=== PATIENT | female | born 1935 | race Caucasian/White ===

== ENCOUNTER 2018-08-22 19:19 | Emergency (ER) | payer OTHER, BC ==
--- NOTE | 2018-08-22 19:22 | PDOC ---
History of Present Illness - General History Source: Patient, Family, Old Records Exam Limitations: No Limitations - History of Present Illness Initial Comments: 08/22/18 20:03 The patient is a 83 year old female presenting with her granddaughters, with a significant past medical history of HTN, who presents to the ED complaining of hitting her head when she fell earlier today. She reports that she heard some noise outside of her home and went out to check. She notes that she fell and hit her head and right knee on concrete. She does not illicit pain on presentation for her head injury but notes a bruise on her left forehead. She denies any factors leading up to her fall. She denies any knee pain but also notes a bruise on her knee. She reports that she was feeling fine after the fall and did not want to come to the ED. She came to the ED on the behest of her family. She denies any kind of pain. The patient denies chest pain, shortness of breath, neck pain, back pain, headache and dizziness. Denies fever, chills, nausea, vomiting, diarrhea or constipation. Denies dysuria, frequency, urgency and hematuria. Allergies: None Past surgical history: Right knee replacement Social History: No alcohol, tobacco or drug use reported <Tom Pyle - Last Filed: 08/22/18 23:20> <Beckie Lynch - Last Filed: 08/23/18 00:57> - General Chief Complaint: Injury Stated Complaint: INJURY,FALL HIT HEAD Time Seen by Provider: 08/22/18 19:21 Past History <Tom Pyle - Last Filed: 08/22/18 23:20> - Past Medical History HTN: Yes - Immunization History Immunization Up to Date: Yes - Suicide/Smoking/Psychosocial Hx Smoking History: Unknown if ever smoked Have you smoked in the past 12 months: No If you are a former smoker, when did you quit?: Over 40 years ago Hx Alcohol Use: No Drug/Substance Use Hx: No Substance Use Type: None Hx Substance Use Treatment: No <Beckie Lynch - Last Filed: 08/23/18 00:57> - Past Medical History Allergies/Adverse Reactions: Allergies Allergy/AdvReac Type Severity Reaction Status Date / Time No Known Drug Allergies Allergy Verified 08/22/18 19:21 Home Medications: Ambulatory Orders Cholecalciferol (Vitamin D3) [Vitamin D] 400 unit PO DAILY 04/26/15 Enalapril Maleate [Vasotec] 25 mg PO DAILY 04/26/15 Review of Systems - Review of Systems Able to Perform ROS?: Yes Comments:: 08/22/18 20:03 GENERAL/CONSTITUTIONAL: No fever or chills. No weakness. HEAD, EYES, EARS, NOSE AND THROAT: (+) Left forehead bruise. No change in vision. No ear pain or discharge. No sore throat. GASTROINTESTINAL: No nausea, vomiting, diarrhea or constipation. GENITOURINARY: No dysuria, frequency, or change in urination. CARDIOVASCULAR: No chest pain or shortness of breath. RESPIRATORY: No cough, wheezing, or hemoptysis. MUSCULOSKELETAL: No joint or muscle swelling or pain. No neck or back pain. SKIN: No rash EXTREMITIES: (+) Right knee bruise NEUROLOGIC: No headache, vertigo, loss of consciousness, or change in strength/ sensation. ENDOCRINE: No increased thirst. No abnormal weight change. HEMATOLOGIC/LYMPHATIC: No anemia, easy bleeding, or history of blood clots. ALLERGIC/IMMUNOLOGIC: No hives or skin allergy. <Tom Pyle - Last Filed: 08/22/18 23:20> *Physical Exam - Vital Signs Last Vital Signs Temp Pulse Resp BP Pulse Ox 97.9 F 79 20 135/80 96 08/22/18 19:20 08/22/18 19:20 08/22/18 19:20 08/22/18 19:20 08/22/18 19:20 - Physical Exam Comments: 08/22/18 20:03 Constitutional: Awake, alert, oriented. No acute distress. Head: (+) Mildly tender, mildly edematous, mildly ecchymosis 4 cm diameter contusion on the left side of her forehead. Normocephalic. Eyes: PERRL. EOMI. Conjunctivae are not pale. ENT: Mucous membranes are moist and intact. Posterior pharynx without exudates or erythema. Uvula midline. Neck: Supple. Full ROM. No lymphadenopathy. Cardiovascular: Regular rate. Regular rhythm. S1, S2 regular. Distal pulses are 2+ and symmetric. Pulmonary/Chest: No evidence of respiratory distress. Clear to auscultation bilaterally No wheezing, rales or rhonchi. Abdominal: Soft and non-distended. There is no tenderness. No rebound, guarding or rigidity. No organomegaly. No palpable masses. Good bowel sounds. Back: No CVA tenderness. Musculoskeletal: (+) Faint ecchymosis and non bleeding abrasion of the anterior right knee, with also some mild tenderness, no edema, no deformity. No cyanosis. No clubbing. Full range of motion in all extremities. No calf tenderness. Radial/pedal pulses are intact and 2+ bilaterally Skin: Skin is warm and dry. No petechiae. No purpura. Neurological: Alert and oriented to person, place, and time. Cranial nerves II -XII are grossly intact. Normal speech. Strength is grossly symmetric. No sensory deficits. Psychiatric: Good eye contact. Normal interaction, affect and behavior. <Tom Pyle - Last Filed: 08/22/18 23:20> Moderate Sedation - Procedure Monitoring Vital Signs: Procedure Monitoring Vital Signs Temperature 97.9 F 08/22/18 19:20 Pulse Rate 79 08/22/18 19:20 Respiratory Rate 20 08/22/18 19:20 Blood Pressure 135/80 08/22/18 19:20 O2 Sat by Pulse Oximetry (%) 96 08/22/18 19:20 <Tom Pyle - Last Filed: 08/22/18 23:20> Progress Note - Progress Note Progress Note: Documentation has been prepared under my direction and personally reviewed by me in its entirety. I attest that this documented accurately reflects all work, treatment, procedures and medical decision making performed by me. <Beckie Lynch - Last Filed: 08/23/18 00:57> Medical Decision Making - Medical Decision Making As noted above, this 83-year-old woman presents with a history of tripping and falling on an uneven surface outside of her home earlier today. Patient vehemently denies antecedent lightheadedness or other physical symptoms prior to falling. She states that sidewalk was uneven and she tripped. Patient struck her forehead and right knee but denies LOC. No significant symptoms occurred through the afternoon and early evening. She was convinced by her family to come to the emergency room for full evaluation. Exam as noted. Although patient is not taking any anticoagulation medications, because of her advanced age, noncontrast head CT will be performed to evaluate for acute intracranial pathology. Also, right knee x-ray will be performed. Noncontrast head CT performed and interpreted by Dr. Montana of radiology staff: No evidence of acute intracranial process present. There is evidence of chronic micro-vascular ischemic changes. There is no significant change from noncontrast head CT performed 4 and half years ago here. Right knee x-ray shows that patient had total knee replacement in this joint. There is no fracture or dislocation; furthermore, no evidence of loosening of the hardware in her knee. <Beckie Lynch - Last Filed: 08/23/18 00:57> *DC/Admit/Observation/Transfer - Attestations Scribe Attestion: 08/22/18 20:03 Documentation prepared by Tom Pyle, acting as certified medical asst for Beckie Lynch MD <Tom Pyle - Last Filed: 08/22/18 23:20> <Beckie Lynch - Last Filed: 08/23/18 00:57> Diagnosis at time of Disposition: Forehead contusion Qualifiers: Encounter type: initial encounter Qualified Code(s): S00.83XA - Contusion of other part of head, initial encounter Contusion, knee Qualifiers: Encounter type: initial encounter Laterality: right Qualified Code(s): S80.01XA - Contusion of right knee, initial encounter Closed head injury Qualifiers: Encounter type: initial encounter Qualified Code(s): S09.90XA - Unspecified injury of head, initial encounter - Discharge Dispostion Disposition: HOME Condition at time of disposition: Stable - Patient Instructions Printed Discharge Instructions: DI for Closed Head Injury Additional Instructions: cold compresses to forehead bruise for the next 2 days extra pillow tonight Tylenol as needed for pain for the next 2 days, then Motrin/Aleve/Tylenol as needed return to ER if you have headache/vomiting/lightheadedness Follow-up with your doctor within the next 5 days
[2018-08-22 19:28] VITALS: BP 135/80; PULSE 79; TEMP 97.9; BMI 21.2
== END 2018-08-22 20:37 | disposition home or self-care (01) ==
LOC: FER 19:19
DX: S09.90XA Unspecified injury of head, initial encounter (principal); S80.01XA Contusion of right knee, initial encounter; S00.83XA Contusion of other part of head, initial encounter; W01.0XXA Fall on same level from slipping, tripping and stumbling without subsequent striking against object, initial encounter; Y93.89 Activity, other specified; Y92.89 Other specified places as the place of occurrence of the external cause
CPT/HCPCS: 70450-TC; 73560-TC-RT-FY; 99282-25

== ENCOUNTER 2018-11-01 22:56 | Observation (INO) | payer OTHER, BC ==
[2018-11-01 23:01] VITALS: BMI 27.4
--- NOTE | 2018-11-01 23:48 | PDOC ---
Attending Attestation - Resident Resident Name: Jessica Batres - ED Attending Attestation I have performed the following: I have examined & evaluated the patient, The case was reviewed & discussed with the resident, I agree w/resident's findings & plan, Exceptions are as noted - HPI HPI: 11/02/18 00:27 The patient is an 83-year-old female with a past medical history significant for HTN presents to the emergency department via EMS s/p a syncopal episode. 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 The patient slumped forward with LOC, nearby nurses helped the patient to lay down on the floor. Following, the patient spontaneously regained consciousness. Immediately following, the patient had an episode of vomiting. Denies any symptoms prior to LOC, lightheadedness, headache, neck pain, neurological symptoms, chest pain, shortness of breath diarrhea, melena, bpr, fever/chills, cough, dysuria, or known sick contact. - Physicial Exam PE: 11/02/18 00:06 GENERAL: The patient is awake, alert, and fully oriented, Nontoxic - in no acute distress. HEAD: Normocephalic, atraumatic. EYES: extraocular movements intact, sclera anicteric, conjunctiva clear. ENT: Normal voice, mildly dry mucous membranes. NECK: Normal range of motion, supple LUNGS: Breath sounds equal, clear to auscultation bilaterally. No wheezes, no rhonchi, no rales. HEART: Regular rate and rhythm, normal S1 and S2 without murmur, rub or gallop. ABDOMEN: Soft, nontender, normoactive bowel sounds. No guarding, no rebound. . No CVA tenderness EXTREMITIES: Normal range of motion, no edema. No clubbing or cyanosis. No cords, erythema, or tenderness. NEUROLOGICAL: No facial assymetry, Normal speech, PSYCH: Normal mood, normal affect. SKIN: Warm, Dry, normal turgor, - Medical Decision Making 11/01/18 23:51 83y F hx of htn, presents sp witnessed syncopal event. 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 Woke up spontaneously when she laid flat, vomited and has been feeling fine since then. Deneis any chest pain, palpitations, sob, dizziness, prior n/v, abd pain, back pain, nekc de paz, fever/chills, cough, sob. BGM 102 in the field. ddx includes but not limited to anemia, metabolic dernagement, arrythmia, acs, vagal episode, dehydraiton perla lcklbas, pt placed on seals engraver gentle fluids ekg ua will reassess, likely obs if w/o neg to r/o arrythmia
[2018-11-01] MEDS ORDERED: SODIUM CHLORIDE 0.9% 500 ML INFUS.BAG IV ONE (23:55)
--- NOTE | 2018-11-02 00:02 | PDOC ---
History of Present Illness - General Chief Complaint: Syncope/Near Syncope Stated Complaint: SYNCOPE VOMITING Time Seen by Provider: 11/01/18 23:42 - History of Present Illness Initial Comments: Asim Golden is an 83yo woman with a PMH of HTN who presents after a witnessed episode of syncope and vomiting tonight. She presents with her daughter and granddaughter, who witnessed the event. Ms Golden was with her family playing Bingo at a [employer] event tonight. Her daughter states that she suddenly had a "blank look" on her face and then slumped forward in her chair. There were several nurses present at the event, and they helped lay her down flat on the ground. She regained consciousness after about a minute or less, and she had an episode of vomiting after waking up. Ms Golden denies any symptoms preceding the syncope including lightheadedness , nausea, chest pain, SOB, weakness or any neurological symptoms. After waking, she states that she has felt in her normal state of health and currently denies any symptoms. Past History - Past Medical History Allergies/Adverse Reactions: Allergies Allergy/AdvReac Type Severity Reaction Status Date / Time No Known Drug Allergies Allergy Verified 11/01/18 22:59 Home Medications: Ambulatory Orders Ramipril 2.5 mg PO DAILY 11/02/18 COPD: No HTN: Yes - Immunization History Immunization Up to Date: Yes - Suicide/Smoking/Psychosocial Hx Smoking History: Never smoked Have you smoked in the past 12 months: No If you are a former smoker, when did you quit?: Over 40 years ago Information on smoking cessation initiated: No Hx Alcohol Use: No Drug/Substance Use Hx: No Substance Use Type: None Hx Substance Use Treatment: No Review of Systems - Review of Systems Comments:: General: No fevers, no chills, no weight or appetite change, no malaise HEENT: No changes in vision, no changes in hearing, no congestion, no sore throat CV: No chest pain, no palpitations, no LE edema. h/o HTN Pulm: No SOB, no cough, no wheezing GI: No nausea or vomiting, no change in bowel habits, no melena : No frequency, no urgency, no dysuria Musc: No back pain, no joint swelling, no recent injury Skin: No rash, no lesions, no erythema Endo: No excessive thirst, no heat/cold intolerance Heme: No unusual bruising or bleeding, no swollen glands Neuro: +syncope. No numbness/tingling, no focal weakness Vasc: No claudication Psych: No recent change in mood, no SI or HI *Physical Exam - Vital Signs Last Vital Signs Temp Pulse Resp BP Pulse Ox 97.6 F 66 18 132/89 99 11/01/18 23:00 11/01/18 23:00 11/01/18 23:00 11/01/18 23:00 11/01/18 23:00 - Physical Exam Comments: General: Comfortable, no acute distress HEENT: PERRL, EOMI, MMM, voice normal, normal neck ROM, no LAD Cards: RRR, no murmur appreciated Pulm: Comfortable on room air, clear to auscultation bilaterally Abd: Soft, nontender, nondistended : No CVA tenderness Ext: Atraumatic. Trace BLE edema. ROM intact. Strength 5/5 and equal bilaterally Vasc: Extremities WWP. Skin: Normal color, no rashes or lesions Neuro: A&Ox3, CN grossly intact, normal speech, motor/sensory grossly intact and symmetric. No focal deficits noted. Psych: Mood appropriate to situation Moderate Sedation - Procedure Monitoring Vital Signs: Procedure Monitoring Vital Signs Temperature 97.6 F 11/01/18 23:00 Pulse Rate 66 11/01/18 23:00 Respiratory Rate 18 11/01/18 23:00 Blood Pressure 132/89 11/01/18 23:00 O2 Sat by Pulse Oximetry (%) 99 11/01/18 23:00 ED Treatment Course - LABORATORY CBC & Chemistry Diagram: 11/02/18 00:25 11/02/18 00:25 - RADIOLOGY Radiology Studies Ordered: Category Date Time Status CHEST PA & LAT [RAD] Stat Radiology 11/01/18 23:39 Ordered Medical Decision Making - Medical Decision Making 11/01/18 23:58 Asim Golden is an 83yo woman with a PMH of HTN who presents after a witnessed episode of syncope followed by vomiting while playing [employer]. She is currently asymptomatic. - Unclear cause at this point, pt denies any symptoms prior to or following the syncope event - No fall, no head injury or neurological symptoms indicating neuro workup. No need for imaging - May be arrhythmia, orthostatic, vagal. No SOB or chest pain suggesting ND, no palpitations, no h/o arrhythmia. Pt does report low fluid intake at baseline and appears slightly dry, but no significant dehydration nor orthostatic symptoms. - CBC, CMP, mag, phos, UA, CXR, EKG for evaluation - 500cc bolus NS for rehydration 11/02/18 01:14 - EKG completed. NSR w/ one PAC noted. HR 66, normal intervals, normal axis, no ST changes - Labs reviewed. Unremarkable, no concerning abnormalities - Discussed admission with Ms Golden and her daughter. Recommend obs with cardiac monitoring to rule out arrhythmia as a cause of syncope. She agrees to admission. Will contact hospitalist after CXR is completed. 11/02/18 02:32 - Hospitalist team contacted, will admit for syncope workup/evaluation - CXR completed. No significant change from previous. Discussed with Dr Drummond. Jessica Batres PGY1 *DC/Admit/Observation/Transfer Diagnosis at time of Disposition: Syncope Qualifiers: Syncope type: unspecified Qualified Code(s): R55 - Syncope and collapse - Discharge Dispostion Decision to Admit order: Yes - Referrals - Patient Instructions - Post Discharge Activity
[2018-11-02 00:45] LABS: BASO % 0.9 % (0-2.0); EOS % 2.2 % (0-4.5); HEMATOCRIT 40.1 % (32.4-45.2); HEMOGLOBIN 13.7 GM/dL (10.7-15.3); LYMPH % 13.1 % (8-40); MCH 30.9 pg (25.7-33.7); MCHC 34.3 g/dl (32.0-36.0); MEAN PLT VOLUME 7.4 fl (7.5-11.1); MONO % 9.8 % (3.8-10.2); PLATELET COUNT 242 K/MM3 (134-434); RBC 4.45 M/mm3 (3.60-5.2); RDW 14.2 % (11.6-15.6); WHITE BLOOD COUNT 9.8 K/mm3 (4.0-10.0)
[2018-11-02 01:05] LABS: ALBUMIN 3.4 g/dl (3.4-5.0); ALK PHOS 68 U/L (45-117); ANION GAP 5 MMOL/L (8-16); BILIRUBIN,TOTAL 0.5 mg/dL (0.2-1); BLOOD UREA NITROGEN 12 mg/dL (7-18); CALCIUM 8.7 mg/dL (8.5-10.1); CHLORIDE 103 mmol/L (98-107); CO2 32 mmol/L (21-32); CREATININE 0.7 mg/dL (0.55-1.3); GLUCOSE,RANDOM 120 mg/dL (74-106); MAGNESIUM 2.4 mg/dL (1.8-2.4); PHOSPHOROUS 3.1 mg/dL (2.5-4.9); POTASSIUM 4.4 mmol/L (3.5-5.1); SGOT/AST 16 U/L (15-37); SGPT/ALT 17 U/L (13-61); SODIUM 139 mmol/L (136-145); TOT PROT 6.7 g/dl (6.4-8.2)
--- NOTE | 2018-11-02 03:14 | HP ---
CHIEF COMPLAINT: syncope PCP: Dr. Sutton HISTORY OF PRESENT ILLNESS: Patient is an 83 yo F with a PMHx of HTN, who presented after a witnessed syncopal episode while playing BINGO at a [employer] event. Patient's daughter at bedside. She states her mom suddenly had a blank look on her face and fell forward on her chair. She had LOC for under a minute. Daughter also states she vomited right after she regained consciousness. Patient denies preceding symptoms prior to the syncopal episode. She also says she has not been drinking enough water lately. She said she had a similar episode in 2013 and was admitted. Patient also told the ER resident that she sometimes has very low blood pressure. She denies lightheadedness, nausea, chest pain, SOB, weakness or any neurological symptoms. ER course was notable for: (1) 1/2 L NS bolus in ER (2) Trop neg x 1 Recent Travel: denies PAST MEDICAL HISTORY: per HPI Family History: Allergies No Known Drug Allergies Allergy (Verified 11/01/18 22:59) HOME MEDICATIONS: Home Medications Medication Instructions Recorded Ramipril 2.5 mg PO DAILY 11/02/18 REVIEW OF SYSTEMS CONSTITUTIONAL: Absent: fever, chills, diaphoresis, generalized weakness, malaise, loss of appetite, weight change HEENT: Absent: rhinorrhea, nasal congestion, throat pain, throat swelling, difficulty swallowing, mouth swelling, ear pain, eye pain, visual changes CARDIOVASCULAR: syncope Absent: chest pain, palpitations, irregular heart rate, lightheadedness, peripheral edema RESPIRATORY: Absent: cough, shortness of breath, dyspnea with exertion, orthopnea, wheezing, stridor, hemoptysis GASTROINTESTINAL: Absent: abdominal pain, abdominal distension, nausea, vomiting, diarrhea, constipation, melena, hematochezia GENITOURINARY: Absent: dysuria, frequency, urgency, hesitancy, hematuria, flank pain, genital pain NEUROLOGIC: Absent: headache, focal weakness or paresthesias, dizziness, unsteady gait, seizure, mental status changes, bladder or bowel incontinence PHYSICAL EXAMINATION Vital Signs - 24 hr 11/01/18 23:00 Temperature 97.6 F Pulse Rate 66 Respiratory 18 Rate Blood Pressure 132/89 O2 Sat by Pulse 99 Oximetry (%) GENERAL: a/o x 3, nad HEAD: Normal with no signs of trauma. EYES: Pupils equal, round and reactive to light, extraocular movements intact, sclera anicteric, conjunctiva clear. No lid lag. EARS, NOSE, THROAT: oropharynx clear without exudates. Moist mucous membranes. NECK: supple without lymphadenopathy, JVD, or masses. LUNGS: Breath sounds equal, clear to auscultation bilaterally. No wheezes, and no crackles. HEART: Regular rate and rhythm, normal S1 and S2 without murmur, rub or gallop. ABDOMEN: Soft, nontender, not distended, normoactive bowel sounds, no guarding, no rebound, no masses. LOWER EXTREMITIES: 2+ pulses, warm, well-perfused. No calf tenderness. No peripheral edema. NEUROLOGICAL: Cranial nerves II-XII intact. Normal speech. Normal gait. Laboratory Results - last 24 hr 11/02/18 11/02/18 00:25 00:25 WBC 9.8 RBC 4.45 Hgb 13.7 Hct 40.1 MCV 90.0 MCH 30.9 MCHC 34.3 RDW 14.2 Plt Count 242 D MPV 7.4 L Absolute Neuts (auto) 7.2 Neutrophils % 74.0 D Lymphocytes % 13.1 D Monocytes % 9.8 Eosinophils % 2.2 Basophils % 0.9 Nucleated RBC % 0 Sodium 139 Potassium 4.4 Chloride 103 Carbon Dioxide 32 Anion Gap 5 L BUN 12 Creatinine 0.7 Creat Clearance w eGFR > 60 Random Glucose 120 H Calcium 8.7 Phosphorus 3.1 Magnesium 2.4 Total Bilirubin 0.5 AST 16 ALT 17 Alkaline Phosphatase 68 Creatine Kinase 76 Troponin I < 0.02 Total Protein 6.7 Albumin 3.4 ASSESSMENT/PLAN: 83 yo F with a PMHx of HTN, who presented after a witnessed syncopal episode and vomiting. #Syncope -cardiogenic vs vasovagal vs orthostatic -tele monitoring -cardiology consult: Dr. Auguste is the last Interactive Media Marketing Strategist she saw -First trop neg, repeat Trop -Echo in AM. Last echo in 2013 -TSH -U/A #HTN -cont. Home med: Rampril 2.5mg -monitor BP #FEN -No Iv fluids -monitor lytes -Sodium controlled diet #DVT -EAB -Scds tele-obs Visit type - Emergency Visit Emergency Visit: Yes ED Registration Date: 11/02/18 Care time: The patient presented to the Emergency Department on the above date and was hospitalized for further evaluation of their emergent condition. - New Patient This patient is new to me today: Yes Date on this admission: 11/04/18 - Critical Care Critical Care patient: No
--- NOTE | 2018-11-02 06:31 | PN ---
Teaching Attending Note Name of Resident: Aletha Calderón ATTENDING PHYSICIAN STATEMENT I saw and evaluated the patient. I reviewed the resident's note and discussed the case with the resident. I agree with the resident's findings and plan as documented. SUBJECTIVE: Seen and examined; please see resident note for further historical details. Briefly, this is an 83 y/o presenting to the ER with a CC of witnessed syncope with +LOC while at a [employer]-shopping event. Has had syncope in the past back in 2013 and was seen here by CV; had a negative workup with echo and holter; was seen by neurology and had an extensive workup and cleared for DC as well. She denies prodromal sx. Has had somewhat poor PO intake. Hemodynamically stable and afebrile. Her daughter reveals she had a similar episode several months ago. Denies stress, etc. EKG reviewed; no high degree av block. Monitoring on telemetry. She states that she feels fine and has no complaints when I saw her. 10 sys ROS done and negative aside from HPI PMH, PSH, Family hx, Social hx reviewed Medications reviewed; pending reconciliation OBJECTIVE: VS, labs, imaging reviewed NAD, AAO, resting comfortably in bed RRR s1/2 no mgr Lungs CTAB, w/ sym exp NT ND +BS CN2-12 wnl, no fnd Normal mood, appropriate behavior ASSESSMENT AND PLAN: Patient presents with syncopal episode; now asymptomatic. Monitoring on telemetry and will workup for recurring syncope. 1) Syncope -Check orthostatics, echo, carotid dopplers -Consult CV; appreciate expert opinion -PT referral, monitor on telemetry -As this is recurrent, would recommend trying CLAUDIA stockings, etc. -Given poor PO intake hx can do very light hydration with LR@60 2) HTN -Continue home ramipril FENA -LR@60 -PRN replete -Regular diet -As tolerated Appreciate expert cardiology opinion Full Code
[2018-11-02 08:18] LABS: BASO % 1.1 % (0-2.0); EOS % 1.9 % (0-4.5); HEMATOCRIT 39.3 % (32.4-45.2); HEMOGLOBIN 13.5 GM/dL (10.7-15.3); LYMPH % 19.7 % (8-40); MCH 31.1 pg (25.7-33.7); MCHC 34.4 g/dl (32.0-36.0); MEAN CELL VOLUME 90.3 fl (80-96); MEAN PLT VOLUME 7.5 fl (7.5-11.1); MONO % 10.8 % (3.8-10.2); NEUT % 66.5 % (42.8-82.8); PLATELET COUNT 247 K/MM3 (134-434); RBC 4.35 M/mm3 (3.60-5.2); RDW 14.2 % (11.6-15.6); WHITE BLOOD COUNT 8.5 K/mm3 (4.0-10.0)
[2018-11-02 08:19] VITALS: BP 152/80; PULSE 64; TEMP 98
[2018-11-02 08:51] LABS: ALBUMIN 3.2 g/dl (3.4-5.0); ALK PHOS 63 U/L (45-117); ANION GAP 5 MMOL/L (8-16); BILIRUBIN,TOTAL 0.7 mg/dL (0.2-1); BLOOD UREA NITROGEN 11 mg/dL (7-18); CALCIUM 8.2 mg/dL (8.5-10.1); CHLORIDE 102 mmol/L (98-107); CO2 31 mmol/L (21-32); CREATININE 0.7 mg/dL (0.55-1.3); GLUCOSE,RANDOM 90 mg/dL (74-106); MAGNESIUM 2.2 mg/dL (1.8-2.4); PHOSPHOROUS 3.1 mg/dL (2.5-4.9); POTASSIUM 4.1 mmol/L (3.5-5.1); SGOT/AST 15 U/L (15-37); SGPT/ALT 14 U/L (13-61); SODIUM 138 mmol/L (136-145); TOT PROT 6.3 g/dl (6.4-8.2)
[2018-11-02] MEDS ORDERED: RAMIPRIL 2.5 MG CAPSULE (FP) PO SCH (10:00)
--- NOTE | 2018-11-02 10:29 | CON.CARD ---
Cardiology Consult (text) - Consultation Consultation Note: cc: syncope hpi: 83 f hx htn here with syncope. Pt was sitting playing bingo yesterday when she felt warm and then passed out. Daughter was there and said her mom looked pale and slumped onto table and had loc for about a minute. She awoke and vomited and felt fine after. No cp sob palps dizzy pnd orthopnea le edema. She had similar episode in 2014 and again in 2018. Pt feels well now. pmh: per hpi psh: nc social: no tob fam: no premature cad, scd ros: per hpi; no fever, cough [place] vision changes gib hematuria dysuria muscle pains meds: Home Medications Medication Instructions Recorded Ramipril 2.5 mg PO DAILY 11/02/18 pe: Vital Signs Period Temp Pulse Resp BP Sys/Vu Pulse Ox Last 24 Hr 97.6 F-98.2 F 64-66 18-19 132-152/72-89 97-99 nad no jvd rrr s1s2 no mrg cta bl nl eff aaox3 no le e/c/c abd nt nd pos bs no jaundice diaphoresis pos dp pt no carotid bruits Laboratory Last Values WBC 8.5 K/mm3 (4.0-10.0) 11/02/18 07:00 RBC 4.35 M/mm3 (3.60-5.2) 11/02/18 07:00 Hgb 13.5 GM/dL (10.7-15.3) 11/02/18 07:00 Hct 39.3 % (32.4-45.2) 11/02/18 07:00 MCV 90.3 fl (80-96) 11/02/18 07:00 MCH 31.1 pg (25.7-33.7) 11/02/18 07:00 MCHC 34.4 g/dl (32.0-36.0) 11/02/18 07:00 RDW 14.2 % (11.6-15.6) 11/02/18 07:00 Plt Count 247 K/MM3 (134-434) 11/02/18 07:00 MPV 7.5 fl (7.5-11.1) 11/02/18 07:00 Absolute Neuts (auto) 5.7 K/mm3 (1.5-8.0) 11/02/18 07:00 Neutrophils % 66.5 % (42.8-82.8) 11/02/18 07:00 Lymphocytes % 19.7 % (8-40) D 11/02/18 07:00 Monocytes % 10.8 % (3.8-10.2) H 11/02/18 07:00 Eosinophils % 1.9 % (0-4.5) 11/02/18 07:00 Basophils % 1.1 % (0-2.0) 11/02/18 07:00 Nucleated RBC % 0 % (0-0) 11/02/18 07:00 Sodium 138 mmol/L (136-145) 11/02/18 07:00 Potassium 4.1 mmol/L (3.5-5.1) 11/02/18 07:00 Chloride 102 mmol/L (98-107) 11/02/18 07:00 Carbon Dioxide 31 mmol/L (21-32) 11/02/18 07:00 Anion Gap 5 MMOL/L (8-16) L 11/02/18 07:00 BUN 11 mg/dL (7-18) 11/02/18 07:00 Creatinine 0.7 mg/dL (0.55-1.3) 11/02/18 07:00 Creat Clearance w eGFR > 60 (>60) 11/02/18 07:00 Random Glucose 90 mg/dL (74-106) 11/02/18 07:00 Calcium 8.2 mg/dL (8.5-10.1) L 11/02/18 07:00 Phosphorus 3.1 mg/dL (2.5-4.9) 11/02/18 07:00 Magnesium 2.2 mg/dL (1.8-2.4) 11/02/18 07:00 Total Bilirubin 0.7 mg/dL (0.2-1) 11/02/18 07:00 AST 15 U/L (15-37) 11/02/18 07:00 ALT 14 U/L (13-61) 11/02/18 07:00 Alkaline Phosphatase 63 U/L (45-117) 11/02/18 07:00 Creatine Kinase 76 U/L (26-192) 11/02/18 00:25 Troponin I < 0.02 ng/ml (0.00-0.05) 11/02/18 07:00 Total Protein 6.3 g/dl (6.4-8.2) L 11/02/18 07:00 Albumin 3.2 g/dl (3.4-5.0) L 11/02/18 07:00 Vitamin B12 566 pg/ml (193-986) 11/02/18 07:00 Serum Folate 17 ng/mL (3.1-17.5) 11/02/18 07:00 cxr: clear lungs echo 05/2014: nl lv/rv, mild mr, mild tr, rvsp 30-40, mild pr tele: sr a/p: 83 f hx htn here with syncope. syncope: -pt had similar episodes in 2013 and 2017 -was worked up in past with echo, holter, carotids, all unremarkable -episode thought to be vasvovagal in past and seems that way again -no signs acs, chf, arrhythmia here -rec'd increase po hydration -will f/u in office and plan for 30 day event monitor htn: -cont jovana-i cardiac de la garza ok for dc
--- NOTE | 2018-11-02 15:29 | EKG ---
Test Reason : Blood Pressure : / mmHG Vent. Rate : 066 BPM Atrial Rate : 066 BPM P-R Int : 174 ms QRS Dur : 084 ms QT Int : 432 ms P-R-T Axes : 051 065 051 degrees QTc Int : 452 ms NORMAL SINUS RHYTHM NORMAL ECG WHEN COMPARED WITH ECG OF 26-APR-2015 14:18, NO SIGNIFICANT CHANGE WAS FOUND Confirmed by Faizan De León MD ([id number]) on 11/02/2018 3:29:19 PM Referred By: Confirmed By:Faizan De León MD
== END 2018-11-02 10:31 | disposition home or self-care (01) ==
LOC: JER 22:56 → JERBED 11-02 02:15
PROVIDERS: ADMIT Internal Medicine; ATTEND Internal Medicine
PROC: 3E0337Z Introduction of Electrolytic and Water Balance Substance into Peripheral Vein, Percutaneous Approach (ICD-10-PCS; principal; 2018-11-02)
DX: R55 Syncope and collapse (principal); I10 Essential (primary) hypertension
CPT/HCPCS: 36415; 71045-TC-FY; 80053; 82550; 82607; 82746; 83735; 84100; 84443; 84484; 85025; 93005; 93010; 99284-25; G0378